=== PATIENT | female | born 1965 | race African-American/Black ===

== ENCOUNTER 2016-06-06 15:13 | Emergency (ER) | payer MEDICAID, OTHER ==
[~2016-06-06] VITALS: Ht 165.1 cm; Wt 83.0 kg
[2016-06-06 15:26] VITALS: BP 121/89
== END 2016-06-06 18:54 | disposition home or self-care (01) ==
LOC: ER 17:29
DX: M79.671 Pain in right foot (principal); F32.9 Major depressive disorder, single episode, unspecified; M79.89 Other specified soft tissue disorders; Z98.890 Other specified postprocedural states
CPT/HCPCS: 73630; 99284

== ENCOUNTER 2018-03-26 10:34 | Emergency (ER) | payer MEDICAID ==
[~2018-03-26] VITALS: Ht 167.6 cm; Wt 77.0 kg
[2018-03-26] MEDS ORDERED: IPRATROPIUM BROMIDE (0.02%) 0.5MG/2.5ML NEB HHN STA (14:42)
[2018-03-26] MEDS ORDERED: PREDNISONE 20MG TABLET PO STA (14:42)
[2018-03-26] MEDS ORDERED: ALBUTEROL (0.083%) 2.5MG/3ML NEB HHN STA (14:42)
[2018-03-26 16:55] VITALS: BP 110/70
== END 2018-03-26 17:02 | disposition home or self-care (01) ==
LOC: ER 10:49
DX: J40 Bronchitis, not specified as acute or chronic (principal)
CPT/HCPCS: 71045; 94640; 99283; J7512; J7611